=== PATIENT | male | born 1990 | race African-American/Black ===

== ENCOUNTER 2017-07-15 22:29 | Emergency (ER) | payer SELFPAY ==
[2017-07-15 22:39] VITALS: BP 148/98
[2017-07-15] MEDS ORDERED: Ketorolac 60 MG/2 ML SDV IM ONE (22:50)
--- NOTE | 2017-07-15 22:56 | EDM.PDOC ---
<PieroYogi A - Last Filed: 07/16/17 07:55> ED HPI GENERAL MEDICAL PROBLEM - General Chief Complaint: Lower Extremity Injury/Pain Stated Complaint: Foot pain Time Seen by Provider: 07/15/17 22:35 - Related Data Allergies Allergy/AdvReac Type Severity Reaction Status Date / Time No Known Allergies Allergy Verified 07/15/17 22:39 Home Meds: Home Meds Levothyroxine 150 mcg PO ACBREAKFAST 07/15/17 [History] ED JOINT ASPIRATION PROCEDURE - Joint Apsiration/Arthrocentesis Site: Left 1st MTP joint Skin prep: Chlorhexidine (Hibiciens) Local anesthesia: Lidocaine: 1% Plain Local Anesthetic Volume: 2cc Aspiration needle size: 18g Aspirate appearance: sanguinous (thick) Aspirate amount in cc's: 1 Dressing: adhesive dressing Complications: No Course - Vital Signs Last Recorded V/S: Last Vital Signs Temp 98.7 F 07/15/17 22:36 Pulse 84 07/15/17 22:36 Resp 18 07/15/17 22:36 BP 148/98 H 07/15/17 22:36 Pulse Ox 99 07/15/17 22:36 - Orders/Labs/Meds Labs: Laboratory Tests 07/16/17 Range/Units 00:51 Synovial Crystals see below Meds: Medications Discontinued Medications Generic Name Dose Route Start Last Admin Trade Name Titus PRN Reason Stop Dose Admin Colchicine 1.2 mg 07/16/17 01:03 07/16/17 01:09 Colcrys PO 07/16/17 01:04 1.2 mg ONETIME STA Administration Colchicine 0.6 mg 07/16/17 01:08 07/16/17 01:11 Colcrys PO 07/16/17 01:09 0.6 mg ONETIME STA Administration Ketorolac Tromethamine 60 mg 07/15/17 22:50 07/15/17 23:00 Toradol IM 07/15/17 22:51 60 mg ONETIME ONE Administration Lidocaine HCl 10 ml 07/16/17 00:42 07/16/17 01:10 Xylocaine 1% INJECT 07/16/17 00:43 10 ml ONETIME ONE Administration - Re-Assessments/Exams Free Text/Narrative Re-Assessment/Exam: 07/16/17 01:04 Asked to evaluate the patient for possible gout. 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 Diagnosis of gout is made by aspiration of the synovial fluid for crystal analysis. After sterilization and anesthesia with 1% lidocaine, aspiration of the left first MTP joint was performed, recovering a small amount of synovial fluid. This has been sent for crystal analysis. The patient will be treated with 1.2 mg colchicine now, then sent home with an additional 0.6 mg, to be taken in one hour. He will need to follow-up with his PCP, Rosamaria Brambila, to check on the crystal analysis results. Departure - Departure Time of Disposition: 01:06 Disposition: Home, Self-Care 01 Clinical Impression: Podagra - Discharge Information Instructions: Gout, [id number] Referrals: Patty,MARCOS Hayden [Primary Care Provider] - Forms: ED Department Discharge Additional Instructions: You were seen in the emergency room for left big toe pain. Fluid from your toe joint was collected and sent for analysis. You have been started on the anti-gout medicine colchicine. Take the second dose at 2:10 this morning. Follow-up with Rosamaria Brambila in the clinic this week, to check on the results of the crystal analysis of your toe joint fluid, to confirm that you have gout. If confirmed, she can talk to you about long-term prevention and treatment. If any other problems, please do not hesitate to return to the ER. <Elle Escoto - Last Filed: 08/08/17 22:19> ED HPI GENERAL MEDICAL PROBLEM - General Source of Information: Reports: Patient, RN Notes Reviewed History Limitations: Reports: No Limitations - History of Present Illness INITIAL COMMENTS - FREE TEXT/NARRATIVE: 27 year old male presents to the ED with 2 day history of left foot pain. The pain came on somewhat suddenly. He then developed pain and swelling of the MTP joint. He denies injury to the foot. He denies fever or chills. He has a family history of gout but no personal history. He drove himself here today and is planning to go to work tomorrow. Left Feet Pain Score (Numeric/FACES): 6 Past Medical History Endocrine/Metabolic History: Reports: Hypothyroidism Social & Family History - Tobacco Use Smoking Status *Q: Current Every Day Smoker Years of Tobacco use: 5 Packs/Tins Daily: 0.5 Used Tobacco, but Quit: No Second Hand Smoke Exposure: No - Caffeine Use Caffeine Use: Reports: Soda - Recreational Drug Use Recreational Drug Use: No Review of Systems - Review of Systems Review Of Systems: See Below Musculoskeletal: Reports: Foot Pain Skin: Reports: Erythema Neurological: Reports: No Symptoms. Denies: Numbness, Tingling, Weakness ED EXAM, GENERAL - Physical Exam Exam: See Below Exam Limited By: No Limitations General Appearance: Alert, WD/WN, No Apparent Distress Respiratory/Chest: No Respiratory Distress, Lungs Clear Cardiovascular: Regular Rate, Rhythm Extremities: Joint Swelling (MTP joint ), Increased Warmth, Redness, Other ( Tenderness, erythema, and swelling to MTP joint of left foot) Neurological: Alert, Normal Cognition, No Motor/Sensory Deficits Skin Exam: Warm, Dry, Intact, Increased Warmth (MTP joint ) Course - Orders/Labs/Meds Labs: Laboratory Tests 07/16/17 Range/Units 00:51 Synovial Crystals see below Meds: Medications Discontinued Medications Generic Name Dose Route Start Last Admin Trade Name Freq PRN Reason Stop Dose Admin Colchicine 1.2 mg 07/16/17 01:03 07/16/17 01:09 Colcrys PO 07/16/17 01:04 1.2 mg ONETIME STA Administration Colchicine 0.6 mg 07/16/17 01:08 07/16/17 01:11 Colcrys PO 07/16/17 01:09 0.6 mg ONETIME STA Administration Ketorolac Tromethamine 60 mg 07/15/17 22:50 07/15/17 23:00 Toradol IM 07/15/17 22:51 60 mg ONETIME ONE Administration Lidocaine HCl 10 ml 07/16/17 00:42 07/16/17 01:10 Xylocaine 1% INJECT 07/16/17 00:43 10 ml ONETIME ONE Administration - Re-Assessments/Exams Free Text/Narrative Re-Assessment/Exam: History and exam findings are suggestive of gout. Patient would prefer to go to work tomorrow. I offered steroids tonight however due to side effects, he opted to start prednisone in the morning. Will treat his pain tonight with Toradol 60mg IM. He will be started on Prednsone 40mg daily for 5 days. Prescription given for Percocet 1-2 tabs every 6 hours as needed for pain #10 no refills. He was offered instymed but says he doesn't have any money. Educated on f/u instructions and return precautions. He was instructed to f/u in the clinic next week for further outpatient management of his gouty arthritis. He was educated on dietary modifications. 07/17/17 I (Elle Escoto) initially saw the patient, diagnosed him with gout, and discharged him from the ER with the treatment plan as described above. He was referred to the clinic for follow-up. Due to computer downtime, the prescriptions for Prednisone and Percocet did not print prior to the end of my shift. I therefore did not sign the prescriptions prior to leaving the facility. Nursing staff reportedly notified Dr. Harry, who was the development intern ER doctor, that the prescriptions had not been signed. Dr. Harry then saw the patient and treatment plan was changed. Please see his dictation for change in treatment. Departure - Departure Time of Disposition: 22:59 Condition: Good
[2017-07-16] MEDS ORDERED: Lidocaine 1% 10 ML MDV INJECT ONE (00:42)
[2017-07-16] MEDS ORDERED: Colchicine 0.6 MG Tab PO ONE (01:00)
[2017-07-16] MEDS ORDERED: Colchicine 0.6 MG Tab PO STA ×2 (01:03→01:08)
== END 2017-07-16 01:20 | disposition home or self-care (01) ==
LOC: JD.ED 22:29
DX: M10.9 Gout, unspecified (principal); E03.9 Hypothyroidism, unspecified; F17.210 Nicotine dependence, cigarettes, uncomplicated
CPT/HCPCS: 20610; 89060; 96372; 99283; A9270; J1885; 20600

== ENCOUNTER 2021-04-21 20:20 | Emergency (ER) | payer BC ==
--- NOTE | 2021-04-21 20:34 | EDM.PDOC ---
ED HPI GENERAL MEDICAL PROBLEM - General Chief Complaint: Lower Extremity Injury/Pain Stated Complaint: LEG PAIN Time Seen by Provider: 04/21/21 20:31 - History of Present Illness INITIAL COMMENTS - FREE TEXT/NARRATIVE: 30-year-old male presents with foot and ankle pain on the left side. This is been going on almost 2 days now. Progressively getting worse. Today after work he could hardly get his foot out of his boot. Patient denies any trauma or unusual activities with his foot. He noticed some redness developing on the outside of his foot now extending around to the back of his ankle. He denies any puncture wounds or open sores in the area. Has not had any fevers chills. Left Lower Leg Pain Score (Numeric/FACES): 10 - Related Data Allergies Allergy/AdvReac Type Severity Reaction Status Date / Time No Known Allergies Allergy Verified 07/15/17 22:39 Home Meds: Home Meds Levothyroxine 150 mcg PO ACBREAKFAST 07/15/17 [History] cephALEXin [Cephalexin] 500 mg PO TID #29 capsule 04/21/21 [Rx] Past Medical History Endocrine/Metabolic History: Reports: Hypothyroidism Social & Family History - Caffeine Use Caffeine Use: Reports: Soda ED ROS GENERAL - Review of Systems Review Of Systems: See Below Constitutional: Reports: No Symptoms HEENT: Reports: No Symptoms Respiratory: Reports: No Symptoms Cardiovascular: Reports: No Symptoms GI/Abdominal: Reports: No Symptoms ED EXAM, GENERAL - Physical Exam Exam: See Below Exam Limited By: No Limitations General Appearance: Alert Head: Atraumatic, Normocephalic Neck: Normal Inspection, Supple, Non-Tender, Full Range of Motion Respiratory/Chest: No Respiratory Distress, Lungs Clear, Normal Breath Sounds Cardiovascular: Regular Rate, Rhythm, No Edema, No Murmur GI/Abdominal: Normal Bowel Sounds, Soft, Non-Tender Extremities: No Pedal Edema, Leg Pain (Around the area of the calcaneus), Limited Range of Motion (Secondary to discomfort), Increased Warmth (Increased redness and warmth from the base of the fifth metatarsal to the back of the heel this does not extend up the leg yet.), Other (Neurovascular status of the foot is normal). No: Pastor's Sign Course - Vital Signs Last Recorded V/S: Last Vital Signs Temp 37.3 C 04/21/21 20:34 Pulse 108 H 04/21/21 20:34 Resp 20 04/21/21 20:34 BP 160/114 H 04/21/21 20:34 Pulse Ox 94 L 04/21/21 20:34 - Orders/Labs/Meds Labs: Laboratory Tests 04/21/21 04/21/21 04/21/21 Range/Units 21:05 21:05 21:05 WBC 8.99 (4.23-9.07) K/mm3 RBC 4.76 (4.63-6.08) M/mm3 Hgb 14.5 (13.7-17.5) gm/dl Hct 43.2 (40.1-51.0) % MCV 90.8 (79.0-92.2) fl MCH 30.5 (25.7-32.2) pg MCHC 33.6 (32.2-35.5) g/dl RDW Std Deviation 47.1 H (35.1-43.9) fL Plt Count 341 H (163-337) K/mm3 MPV 8.9 L (9.4-12.3) fl Neut % (Auto) 61.0 (34.0-67.9) % Lymph % (Auto) 27.7 (21.8-53.1) % Ralls % (Auto) 9.5 (5.3-12.2) % Eos % (Auto) 1.4 (0.8-7.0) Baso % (Auto) 0.2 (0.1-1.2) % Neut # (Auto) 5.48 H (1.78-5.38) K/mm3 Lymph # (Auto) 2.49 (1.32-3.57) K/mm3 Ralls # (Auto) 0.85 H (0.30-0.82) K/mm3 Eos # (Auto) 0.13 (0.04-0.54) K/mm3 Baso # (Auto) 0.02 (0.01-0.08) K/mm3 ESR 5 (0-15) mm/hr D-Dimer, Quantitative (0.19-0.50) mg/L Sodium 137 (136-145) mEq/L Potassium 3.8 (3.5-5.1) mEq/L Chloride 100 (98-107) mEq/L Carbon Dioxide 25 (21-32) mEq/L Anion Gap 15.8 H (5-15) BUN 17 (7-18) mg/dL Creatinine 1.4 H (0.7-1.3) mg/dL Est Cr Clr Drug Dosing 76.98 mL/min Estimated GFR (MDRD) > 60 (>60) mL/min BUN/Creatinine Ratio 12.1 L (14-18) Glucose 101 H (70-99) mg/dL Calcium 8.5 (8.5-10.1) mg/dL Total Bilirubin 0.4 (0.2-1.0) mg/dL AST 48 H (15-37) U/L ALT 66 H (16-63) U/L Alkaline Phosphatase 80 (46-116) U/L C-Reactive Protein 1.1 H* (<1.0) mg/dL Total Protein 8.0 (6.4-8.2) g/dl Albumin 4.3 (3.4-5.0) g/dl Globulin 3.7 gm/dL Albumin/Globulin Ratio 1.2 (1-2) / Range/Units 21:05 WBC (4.23-9.07) K/mm3 RBC (4.63-6.08) M/mm3 Hgb (13.7-17.5) gm/dl Hct (40.1-51.0) % MCV (79.0-92.2) fl MCH (25.7-32.2) pg MCHC (32.2-35.5) g/dl RDW Std Deviation (35.1-43.9) fL Plt Count (163-337) K/mm3 MPV (9.4-12.3) fl Neut % (Auto) (34.0-67.9) % Lymph % (Auto) (21.8-53.1) % Ralls % (Auto) (5.3-12.2) % Eos % (Auto) (0.8-7.0) Baso % (Auto) (0.1-1.2) % Neut # (Auto) (1.78-5.38) K/mm3 Lymph # (Auto) (1.32-3.57) K/mm3 Ralls # (Auto) (0.30-0.82) K/mm3 Eos # (Auto) (0.04-0.54) K/mm3 Baso # (Auto) (0.01-0.08) K/mm3 ESR (0-15) mm/hr D-Dimer, Quantitative < 0.19 L (0.19-0.50) mg/L Sodium (136-145) mEq/L Potassium (3.5-5.1) mEq/L Chloride (98-107) mEq/L Carbon Dioxide (21-32) mEq/L Anion Gap (5-15) BUN (7-18) mg/dL Creatinine (0.7-1.3) mg/dL Est Cr Clr Drug Dosing mL/min Estimated GFR (MDRD) (>60) mL/min BUN/Creatinine Ratio (14-18) Glucose (70-99) mg/dL Calcium (8.5-10.1) mg/dL Total Bilirubin (0.2-1.0) mg/dL AST (15-37) U/L ALT (16-63) U/L Alkaline Phosphatase (46-116) U/L C-Reactive Protein (<1.0) mg/dL Total Protein (6.4-8.2) g/dl Albumin (3.4-5.0) g/dl Globulin gm/dL Albumin/Globulin Ratio (1-2) - Re-Assessments/Exams Free Text/Narrative Re-Assessment/Exam: 04/21/21 22:02 D-dimer is negative C-reactive protein is minimally elevated white count is not elevated. I am concerned about the possibility of a developing cellulitis but I am puzzled by the fact that he does not want to use the Achilles. I will place him in a walking boot and crutches with no weightbearing with the left and in case he has a starting cellulitis will start cephalexin. The patient will be placed in a walking boot and crutches to limit damage to a possible Achilles injury and facilitate proper healing. Departure - Departure Time of Disposition: 22:10 Disposition: Home, Self-Care 01 Clinical Impression: Injury of left Achilles tendon, Cellulitis of left foot - Discharge Information Referrals: Gilma Clements PA-C [Primary Care Provider] - Forms: ED Department Discharge Additional Instructions: Return to the emergency room with any questions problems or worsening symptoms. You were placed in a walking boot to further protect the suspected Achilles tendon injury. Do not bear weight on this foot. And use the crutches all the time. For the redness on the side your foot it is possible that you have a superficial skin infection there called cellulitis we have started you on some antibiotics for this. Also can keep your foot elevated is much as practical use warm moist heat to the area every couple hours while awake. Follow-up with your regular healthcare provider on Saturday for recheck. Consider MRI evaluation to get a better look at the Achilles tendon. Sepsis Event Note (ED) - Focused Exam Vital Signs: Vital Signs Temp Pulse Resp BP Pulse Ox 04/21/21 20:34 37.3 C 108 H 20 160/114 H 94 L
[2021-04-21 20:39] VITALS: BP 160/114; PULSE 108
--- NOTE | 2021-04-21 21:47 | CR ---
Left ankle: 3 views left ankle were obtained. Comparison: Prior left ankle study of 02/14/21. Findings: Ankle mortise is symmetric. No fracture, dislocation or other bony abnormality is appreciated. Impression: 1. No abnormality is appreciated on left ankle exam. 2. No change is seen from previous study. Diagnostic code #1
[2021-04-21] MEDS ORDERED: Cephalexin 500 MG Cap PO ONE ×2 (22:11→22:14)
== END 2021-04-21 22:30 | disposition home or self-care (01) ==
LOC: JD.ED 20:20
DX: S86.002A Unspecified injury of left Achilles tendon, initial encounter (principal); L03.116 Cellulitis of left lower limb; E03.9 Hypothyroidism, unspecified; Z79.899 Other long term (current) drug therapy; X58.XXXA Exposure to other specified factors, initial encounter
CPT/HCPCS: 36415; 73610; 80053; 85025; 85379; 85652; 86140; 99283; A9270